=== PATIENT | female | born 1975 | race Caucasian/White ===

== ENCOUNTER 2020-09-09 16:28 | Emergency (ER) | payer BC, OTHER ==
[2020-09-09] MEDS ORDERED: Ondansetron 4 MG/2 ML SDV IVPUSH ONE (17:09)
[2020-09-09] MEDS ORDERED: Sodium Chloride 0.9% 10 ML Syringe FLUSH PRN (17:09)
[2020-09-09] MEDS ORDERED: fentaNYL 50 MCG/ML SDV IVPUSH ONE (17:09)
[2020-09-09] MEDS ORDERED: Sodium Chloride 0.9% 2.5 ML Syringe FLUSH PRN (17:09)
[2020-09-09] MEDS ORDERED: Ketorolac 15 MG/ML SDV IVPUSH ONE (17:09)
[2020-09-09] MEDS ORDERED: Sodium Chloride 0.9% 1,000 ML IV ONE (17:09)
--- NOTE | 2020-09-09 17:09 | EDM.PDOC ---
<Jean Marie Em - Last Filed: 09/09/20 17:05> ED HPI GENERAL MEDICAL PROBLEM - General Chief Complaint: Abdominal Pain Stated Complaint: LEFT SIDE ADOM.PAIN Time Seen by Provider: 09/09/20 16:51 - History of Present Illness INITIAL COMMENTS - FREE TEXT/NARRATIVE: HISTORY AND PHYSICAL: History of present illness: This a 45-year-old female with no significant past medical history for hypertension, diabetes, liver, lung, kidney, heart, strokes in the past who presents ER today complaining of pain to her left lower quadrant that started earlier today. Patient reports that she has occasional twinges to her left flank as well. Patient reports that the pain is constant but waxes and wanes in intensity. Patient reports she does have a history of a tubal in the past and she says that it feels similar to her prior tubal . Patient reports her last menstrual period was approximately 2 weeks ago. Patient denies any recent fevers, shakes, chills. Although patient does have some nausea she denies any vomiting or diarrhea. Patient denies any dysuria, frequency, urgency, hematuria. Patient denies any melena or bright red blood per rectum. Patient reports that she has been able to tolerate p.o. solids and liquids today. Review of systems: As per history of present illness and below otherwise all systems reviewed and negative. Past medical history: As per history of present illness and as reviewed below otherwise noncontributory. Surgical history: As per history of present illness and as reviewed below otherwise noncontributory. Social history: No reported history of drug abuse. Family history: As per history of present illness and as reviewed below otherwise noncontributory. Physical exam: This patient was seen and evaluated during the 2019 SARS-CoV-2 novel coronavirus pandemic period. Community viral transmission is ongoing at time of this encounter and the emergency department is operating under pandemic response procedures. Constitutional: Patient is oriented to person, place, and time. Appears well- developed and well-nourished. No distress. HEENT: Moist mucous membranes Head: Normocephalic and atraumatic Eyes: Right eye exhibits no discharge. Left eye exhibits no discharge. No scleral icterus Neck: Normal range of motion. No tracheal deviation present. Cardiovascular: Normal rate and regular rhythm. Pulmonary: Effort normal, no respiratory distress. Abd: Soft, nondistended, no rebound/guarding, no psoas or obturator signs, no tenderness at Mcberney's point, no Ramirez's sign. Pt does not present with an exam that would be consistent with an acute surgical abdomen at this time. Patient was tenderness to palpation to her left lower quadrant. Patient with some mild tenderness palpation to her left flank. Musculoskeletal: Normal range of motion Neurologic: Alert and oriented to person, place and time. Skin: [place], warm and dry. Psychiatric: Normal mood and affect. Behavior is normal. Judgment and thought content normal. Nursing note and vital signs have been reviewed Diagnostics: CT scan of the abdomen pelvis without IV contrast: CBC, CMP, lipase, urinalysis, urine test Therapeutics: NSS x1 L wide open Zofran 4 mg IV Toradol 15 mg IV Fentanyl 50 mg IV Assessment and plan: This is a 45-year-old female with no significant past medical history who presents to the ER today complaining of left lower quadrant abdominal pain that appears to be colicky in nature. Patient does have a history significant for an ectopic in the past. Patient will have labs drawn as well as CT scan of her abdomen pelvis to further evaluate the cause of her pain. In the meantime, patient will receive IV fluids, pain medicines and antiemetics to assist her with her discomfort. Definitive disposition and diagnosis as appropriate pending reevaluation and review of above. 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 Musculoskeletal History: Reports: None Neurological History: Reports: None Psychiatric History: Reports: None Endocrine/Metabolic History: Reports: None Hematologic History: Reports: None Immunologic History: Reports: None Oncologic (Cancer) History: Reports: None Dermatologic History: Reports: None - Infectious Disease History Infectious Disease History: Reports: None - Past Surgical History Head Surgeries/Procedures: Reports: None Social & Family History - Family History Family Medical History: No Pertinent Family History - Tobacco Use Tobacco Use Status *Q: Never Tobacco User - Caffeine Use Caffeine Use: Reports: None - Recreational Drug Use Recreational Drug Use: No ED ROS GENERAL - Review of Systems Review Of Systems: See Below ED EXAM, GENERAL - Physical Exam Exam: See Below Departure - Departure Disposition: Home, Self-Care 01 Clinical Impression: Diverticulitis - Discharge Information Prescriptions: Amoxicillin/Potassium Clav [Amox Tr-K Clv 875-125 mg Tab] 1 each PO BID #19 tablet Instructions: Diverticulitis, [id number] Referrals: PCP,None [Primary Care Provider] - Forms: ED Department Discharge Additional Instructions: You were evaluated today on the emergent basis. At this time you do have an infection in your abdomen called diverticulitis. Otherwise your labs were normal. There was no evidence of any kidney stone in your urine was normal. At this time we do recommend you take Augmentin twice a day until all antibiotics are gone. We did provide you the first dose here. I do recommend use Tylenol and Motrin for pain relief. Your pain will improve over the next 24 to 48 hours. If you have any worsening pain, fever, blood in your stool I would like you to return to the emergency department. You were a little young to have diverticulitis so I recommend that you follow-up with general surgery to obtain a colonoscopy for further evaluation. Otherwise please follow-up with your primary care physician. [facility] - General Surgery Professional [address], [address] [place] [address] The patient is informed of any results of their evaluation and diagnostic workup and all questions are answered. They are given discharge instructions and return precautions. The patient is stable for discharge. The patient states they understand and agree with the plan and that they will return if their symptoms get worse or if they have any new concerns. The following information is given to patients seen in the emergency department who are being discharged to home. This information is to outline your options for follow-up care. We provide all patients seen in our emergency department with a follow-up referral. The need for follow-up, as well as the timing and circumstances, are variable depending upon the specifics of your emergency department visit. If you don't have a primary care physician on staff, we will provide you with a referral. We always advise you to contact your personal physician following an emergency department visit to inform them of the circumstance of the visit and for follow-up with them and/or the need for any referrals to a consulting specialist. The emergency department will also refer you to a specialist when appropriate. This referral assures that you have the opportunity for follow-up care with a specialist. All of these measure are taken in an effort to provide you with optimal care, which includes your follow-up. Under all circumstances we always encourage you to contact your private physician who remains a resource for coordinating your care. When calling for follow-up care, please make the office aware that this follow-up is from your recent emergency room visit. If for any reason you are refused follow-up, please contact the [facility] Emergency Department at and asked to speak to the emergency department charge nurse. Sepsis Event Note (ED) - Evaluation Sepsis Screening Result: No Definite Risk <Sam Blanca - Last Filed: 09/10/20 08:06> ED HPI GENERAL MEDICAL PROBLEM - History of Present Illness INITIAL COMMENTS - FREE TEXT/NARRATIVE: Patient was signed out to me by Dr. Em pending labs and imaging at 5:30 PM I did reevaluate the patient and patient was comfortable and reported that her pain had improved. I did discuss her at this time that I would reevaluate her after labs and imaging had resulted. Laboratory: CBC reveals a leukocytosis of 12.24 without any left shift. CMP is unremarkable. hCG is negative. Lipase is normal. Urinalysis was a clean catch and was negative for leukocyte esterase, negative for nitrites, and negative for blood. Interpretation: Negative. The radiological images were viewed by myself along with reading the report from the radiologist. CT abdomen pelvis without contrast reveals uncomplicated diverticulitis of the proximal sigmoid colon, possible cholelithiasis After imaging I did discuss results with the patient. I discussed with her that would be providing her with Augmentin. She is to complete a course at home. She was given strict return precautions. I also encouraged the patient to follow-up with general surgery for an outpatient elective colonoscopy given that this is abnormal in her age. She was amenable to this plan had no further questions. DISPOSITION: The patient was discharged home in stable condition. The patient will follow up with general surgery in 1 week for evaluation for outpatient elective colonoscopy CONDITION: Fair PROCEDURES: None FINAL IMPRESSION(S)/DIAGNOSES: 1. Acute uncomplicated diverticulitis Sam Blanca M.D. Course - Vital Signs Last Recorded V/S: Last Vital Signs Temp 36.6 C 09/09/20 20:20 Pulse 78 09/09/20 20:20 Resp 18 09/09/20 20:20 BP 115/78 09/09/20 20:20 Pulse Ox 98 09/09/20 20:20 - Orders/Labs/Meds Orders: Active Orders 24 hr Category Date Time Status Saline Lock Insert [OM.PC] Stat Oth 09/09/20 17:10 Ordered Labs: Laboratory Tests 09/09/20 09/09/20 09/09/20 Range/Units 17:15 17:15 17:15 WBC 12.24 H (4.0-11.0) K/uL RBC 4.28 L (4.30-5.90) M/uL Hgb 13.6 (12.0-16.0) g/dL Hct 39.1 (36.0-46.0) % MCV 91.4 (80.0-98.0) fL MCH 31.8 (27.0-32.0) pg MCHC 34.8 (31.0-37.0) g/dL RDW Std Deviation 42.6 (28.0-62.0) fl RDW Coeff of Jo 13 (11.0-15.0) % Plt Count 188 (150-400) K/uL MPV 11.00 (7.40-12.00) fL Neut % (Auto) 77.7 (48.0-80.0) % Lymph % (Auto) 13.9 L (16.0-40.0) % [place] % (Auto) 7.1 (0.0-15.0) % Eos % (Auto) 1.2 (0.0-7.0) % Baso % (Auto) 0.1 (0.0-1.5) % Neut # (Auto) 9.5 H (1.4-5.7) K/uL Lymph # (Auto) 1.7 (0.6-2.4) K/uL [place] # (Auto) 0.9 H (0.0-0.8) K/uL Eos # (Auto) 0.2 (0.0-0.7) K/uL Baso # (Auto) 0.0 (0.0-0.1) K/uL Nucleated RBC % 0.0 /100WBC Nucleated RBCs # 0 K/uL Sodium 140 (136-145) mmol/L Potassium 3.7 (3.5-5.1) mmol/L Chloride 105 (98-107) mmol/L Carbon Dioxide 24.4 (21.0-32.0) mmol/L BUN 8 (7.0-18.0) mg/dL Creatinine 0.8 (0.6-1.0) mg/dL Est Cr Clr Drug Dosing 88.18 mL/min Estimated GFR (MDRD) > 60.0 ml/min Glucose 94 (74-106) mg/dL Calcium 8.7 (8.5-10.1) mg/dL Total Bilirubin 0.5 (0.2-1.0) mg/dL AST 16 (15-37) IU/L ALT 18 (14-63) IU/L Alkaline Phosphatase 89 (46-116) U/L Total Protein 7.1 (6.4-8.2) g/dL Albumin 3.8 (3.4-5.0) g/dL Globulin 3.3 (2.6-4.0) g/dL Albumin/Globulin Ratio 1.2 (0.9-1.6) Lipase 111 (73-393) U/L HCG, Qual NEGATIVE (NEG) Urine Color Urine Appearance Urine pH (5.0-8.0) Ur Specific [place] (1.001-1.035) Urine Protein (NEGATIVE) mg/dL Urine Glucose (UA) (NEGATIVE) mg/dL Urine Ketones (NEGATIVE) mg/dL Urine Occult Blood (NEGATIVE) Urine Nitrite (NEGATIVE) Urine Bilirubin (NEGATIVE) Urine Urobilinogen (<2.0) EU/dL Ur Leukocyte Esterase (NEGATIVE) 09/09/20 Range/Units 18:40 WBC (4.0-11.0) K/uL RBC (4.30-5.90) M/uL Hgb (12.0-16.0) g/dL Hct (36.0-46.0) % MCV (80.0-98.0) fL MCH (27.0-32.0) pg MCHC (31.0-37.0) g/dL RDW Std Deviation (28.0-62.0) fl RDW Coeff of Jo (11.0-15.0) % Plt Count (150-400) K/uL MPV (7.40-12.00) fL Neut % (Auto) (48.0-80.0) % Lymph % (Auto) (16.0-40.0) % [place] % (Auto) (0.0-15.0) % Eos % (Auto) (0.0-7.0) % Baso % (Auto) (0.0-1.5) % Neut # (Auto) (1.4-5.7) K/uL Lymph # (Auto) (0.6-2.4) K/uL [place] # (Auto) (0.0-0.8) K/uL Eos # (Auto) (0.0-0.7) K/uL Baso # (Auto) (0.0-0.1) K/uL Nucleated RBC % /100WBC Nucleated RBCs # K/uL Sodium (136-145) mmol/L Potassium (3.5-5.1) mmol/L Chloride (98-107) mmol/L Carbon Dioxide (21.0-32.0) mmol/L BUN (7.0-18.0) mg/dL Creatinine (0.6-1.0) mg/dL Est Cr Clr Drug Dosing mL/min Estimated GFR (MDRD) ml/min Glucose (74-106) mg/dL Calcium (8.5-10.1) mg/dL Total Bilirubin (0.2-1.0) mg/dL AST (15-37) IU/L ALT (14-63) IU/L Alkaline Phosphatase (46-116) U/L Total Protein (6.4-8.2) g/dL Albumin (3.4-5.0) g/dL Globulin (2.6-4.0) g/dL Albumin/Globulin Ratio (0.9-1.6) Lipase (73-393) U/L HCG, Qual (NEG) Urine Color YELLOW Urine Appearance CLEAR Urine pH 6.0 (5.0-8.0) Ur Specific [place] 1.020 (1.001-1.035) Urine Protein NEGATIVE (NEGATIVE) mg/dL Urine Glucose (UA) NEGATIVE (NEGATIVE) mg/dL Urine Ketones NEGATIVE (NEGATIVE) mg/dL Urine Occult Blood NEGATIVE (NEGATIVE) Urine Nitrite NEGATIVE (NEGATIVE) Urine Bilirubin NEGATIVE (NEGATIVE) Urine Urobilinogen 0.2 (<2.0) EU/dL Ur Leukocyte Esterase NEGATIVE (NEGATIVE) Meds: Medications Discontinued Medications Generic Name Dose Route Start Last Admin Trade Name Freq PRN Reason Stop Dose Admin Amoxicillin/Clavulanate Potassium 1 tab 09/09/20 19:19 09/09/20 19:40 Amoxicillin/Clavulanate K 875-125 Mg Tab PO 09/09/20 19:20 1 tab ONETIME ONE Administration Fentanyl 100 mcg 09/09/20 17:09 09/09/20 17:36 Fentanyl 50 Mcg/Ml Sdv IVPUSH 09/09/20 17:10 100 mcg ONETIME ONE Administration Sodium Chloride 1,000 mls @ 999 mls/hr 09/09/20 17:09 09/09/20 17:36 Normal Saline IV 09/09/20 18:09 999 mls/hr .Bolus ONE Administration Ketorolac Tromethamine 15 mg 09/09/20 17:09 09/09/20 17:36 Ketorolac 15 Mg/Ml Sdv IVPUSH 09/09/20 17:10 15 mg ONETIME ONE Administration Ondansetron HCl 4 mg 09/09/20 17:09 09/09/20 17:36 Ondansetron 4 Mg/2 Ml Sdv IVPUSH 09/09/20 17:10 4 mg ONETIME ONE Administration Sodium Chloride 10 ml 09/09/20 17:09 09/09/20 17:37 Sodium Chloride 0.9% 10 Ml Syringe FLUSH 10 ml ASDIRECTED PRN Administration Keep Vein Open Sodium Chloride 2.5 ml 09/09/20 17:09 09/09/20 17:37 Sodium Chloride 0.9% 2.5 Ml Syringe FLUSH 2.5 ml ASDIRECTED PRN Administration Keep Vein Open Departure - Departure Time of Disposition: 20:07 Condition: Fair - Discharge Information *PRESCRIPTION DRUG MONITORING PROGRAM REVIEWED*: No *COPY OF PRESCRIPTION DRUG MONITORING REPORT IN PATIENT PRIMO: No Sepsis Event Note (ED) - Focused Exam Vital Signs: Vital Signs Temp Pulse Resp BP Pulse Ox 09/09/20 20:20 36.6 C 78 18 115/78 98
[2020-09-09 17:51] LABS: BLOOD UREA NITROGEN,BUN 8 mg/dL (7.0-18.0); CARBON DIOXIDE,CO2 24.4 mmol/L (21.0-32.0); CHLORIDE,CL 105 mmol/L (98-107); GLUCOSE RANDOM 94 mg/dL (74-106); LIPASE 111 U/L (73-393); POTASSIUM,K 3.7 mmol/L (3.5-5.1); SODIUM,NA 140 mmol/L (136-145)
--- NOTE | 2020-09-09 18:55 | CT ---
INDICATION: Flank pain TECHNIQUE: CT abdomen and pelvis without contrast. COMPARISON: None FINDINGS: Lower chest: Unremarkable. Liver: Unremarkable. Spleen: Unremarkable. Pancreas: Unremarkable. Gallbladder and bile ducts: O cholelithiasis. Kidneys: Unremarkable. No kidney or ureteral stones and no hydronephrosis. Adrenal glands: Unremarkable. GI tract: Thickening the proximal sigmoid colon with adjacent inflamed fat consistent with diverticulitis. Indent Vascular structures: Unremarkable. Lymph nodes: Unremarkable. Miscellaneous: Unremarkable. No free air or significant free fluid. Pelvis: IUD present in the endometrial canal. Bones: Degenerative changes lumbar spine. IMPRESSION: Scanning of the proximal sigmoid colon adjacent plantar spurring consistent uncomplicated diverticulitis. IUD present in the endometrial canal. No renal calculi or hydronephrosis. Possible cholelithiasis. Please note that all CT scans at this facility use dose modulation, iterative reconstruction, and/or weight-based dosing when appropriate to reduce radiation dose to as low as reasonably achievable. Dictated by Amos Toro MD @ 09/09/2020 6:53:[address] Amos Toro @ Sep 09 2020 6:53PM
[2020-09-09] MEDS ORDERED: Amoxicillin/Clavulanate K 875-125 MG Tab PO ONE (19:19)
== END 2020-09-09 20:21 | disposition home or self-care (01) ==
LOC: MW.ED 16:28
DX: K57.32 Diverticulitis of large intestine without perforation or abscess without bleeding (principal); I10 Essential (primary) hypertension; E11.9 Type 2 diabetes mellitus without complications
CPT/HCPCS: 36415; 74176; 80053; 81003; 83690; 84703; 85025; 96374; 96375; 99284; A9270; J1885; J2405; J3010; J7030

== ENCOUNTER 2020-11-25 08:16 | Day surgery (SDC) | payer OTHER ==
[~2020-11-25 08:16] MED LIST: Lactated Ringers 1,000 ML IV SCH; Sodium Chloride 0.9% 10 ML SDV IV PRN; Sodium Chloride 0.9% 10 ML Syringe FLUSH PRN; Sodium Chloride 0.9% 2.5 ML Syringe FLUSH PRN
--- NOTE | 2020-11-25 08:51 | PCM.PREANE ---
Preanesthetic Assessment - Procedure Proposed Procedure: Colonoscopy - Anesthesia/Transfusion/Family Hx Anesthesia History: Prior Anesthesia Without Reaction Transfusion History: No Prior Transfusion(s) - Review of Systems General: No Symptoms Pulmonary: No Symptoms Cardiovascular: No Symptoms Gastrointestinal: No Symptoms (Diverticulits hx) Neurological: No Symptoms Other: Reports: None - Physical Assessment NPO Status Date: 11/23/20 NPO Status Time: 18:30 (Solids, >8hrs liq) Height: 5 ft 8 in Weight: 114.305 kg ASA Class: 2 Mental Status: Alert & Oriented x3 Airway Class: Mallampati = 3 Dentition: Reports: Normal Dentition Thyro-Mental Finger Breadths: 3 Mouth Opening Finger Breadths: 3 ROM/Head Extension: Full Lungs: Clear to Auscultation, Normal Respiratory Effort Cardiovascular: Regular Rate, Regular Rhythm - Allergies Allergies/Adverse Reactions: Allergies Allergy/AdvReac Type Severity Reaction Status Date / Time adhesive tape Allergy "rips my Verified 11/24/20 10:01 skin" - Acknowledgements Anesthesia Type Planned: General Anesthesia Pt an Appropriate Candidate for the Planned Anesthesia: Yes Alternatives and Risks of Anesthesia Discussed w Pt/Guardian: Yes Pt/Guardian Understands and Agrees with Anesthesia Plan: Yes PreAnesthesia Questionnaire - Past Health History Medical/Surgical History: Denies Medical/Surgical History HEENT History: Reports: None Cardiovascular History: Reports: None Respiratory History: Reports: None Gastrointestinal History: Reports: Cholelithiasis, Other (See Below) Other Gastrointestinal History: diverticulitis Genitourinary History: Reports: None 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 Musculoskeletal History: Reports: Back Pain, Chronic, Fracture Other Musculoskeletal History: fx right foot x2 Neurological History: Reports: None Psychiatric History: Reports: None Endocrine/Metabolic History: Reports: Obesity/BMI 30+ Hematologic History: Reports: None Immunologic History: Reports: None Oncologic (Cancer) History: Reports: None Dermatologic History: Reports: None - Infectious Disease History Infectious Disease History: Reports: None - Past Surgical History Head Surgeries/Procedures: Reports: None HEENT Surgical History: Reports: None Cardiovascular Surgical History: Reports: None Respiratory Surgical History: Reports: None GI Surgical History: Reports: Colonoscopy Female Surgical History: Reports: Other (See Below) Other Female Surgeries/Procedures: laparoscopy for tubal Endocrine Surgical History: Reports: None Neurological Surgical History: Reports: None Musculoskeletal Surgical History: Reports: None Oncologic Surgical History: Reports: None Dermatological Surgical History: Reports: None - SUBSTANCE USE Tobacco Use Status *Q: Never Tobacco User - HOME MEDS Home Medications: Home Meds Scopolamine [Transderm-Scop] 1 patch TRDERM ONETIME 11/24/20 [History] - CURRENT (IN HOUSE) MEDS Current Meds: Current Medications Lactated Ringer's (Ringers, Lactated) 1,000 mls @ 125 mls/hr IV ASDIRECTED MARCELLA Sodium Chloride (Sodium Chloride 0.9% 10 Ml Syringe) 10 ml FLUSH ASDIRECTED PRN PRN Reason: Keep Vein Open Sodium Chloride (Sodium Chloride 0.9% 2.5 Ml Syringe) 2.5 ml FLUSH ASDIRECTED PRN PRN Reason: Keep Vein Open Sodium Chloride (Sodium Chloride 0.9% 10 Ml Syringe) 10 ml FLUSH ASDIRECTED PRN PRN Reason: Keep Vein Open Sodium Chloride (Sodium Chloride 0.9% 2.5 Ml Syringe) 2.5 ml FLUSH ASDIRECTED PRN PRN Reason: Keep Vein Open Sodium Chloride (Sodium Chloride 0.9% 10 Ml Sdv) 10 ml IV ASDIRECTED PRN PRN Reason: IV Use
[2020-11-25] MEDS ORDERED: Propofol 200 MG/20 ML SDV ONE (09:59)
[2020-11-25] MEDS ORDERED: fentaNYL 100 MCG/2 ML SDV ONE (12:12)
--- NOTE | 2020-11-25 12:20 | PCM.OPNOTE ---
- General Post-Op/Procedure Note Date of Surgery/Procedure: 11/25/20 Operative Procedure(s): Diagnostic colonoscopy Findings: Diverticulosis of the sigmoid colon Pre Op Diagnosis: History of diverticulitis Post-Op Diagnosis: Diverticulosis Anesthesia Technique: REYNALDO Primary Surgeon: Katia Arreola Condition: Good
--- NOTE | 2020-11-25 12:26 | PCM.POSTAN ---
POST ANESTHESIA ASSESSMENT - MENTAL STATUS Mental Status: Alert, Oriented - VITAL SIGNS Vital Signs: Last Vital Signs Temp 97.3 F 11/25/20 08:24 Pulse 71 11/25/20 08:24 Resp 16 11/25/20 08:24 BP 148/81 H 11/25/20 08:24 Pulse Ox 97 11/25/20 08:24 - RESPIRATORY Respiratory Status: Respiratory Rate WNL, Airway Patent, O2 Saturation Stable - CARDIOVASCULAR CV Status: Pulse Rate WNL, Blood Pressure Stable - GASTROINTESTINAL GI Status: No Symptoms - PAIN Pain Score: 0 - POST OP HYDRATION Hydration Status: Adequate & Stable
--- NOTE | 2020-11-25 12:28 | PCM48HPAN ---
Post Anesthesia Note - EVALUATION WITHIN 48HRS OF ANESTHETIC Vital Signs in Normal Range: Yes Patient Participated in Evaluation: Yes Respiratory Function Stable: Yes Airway Patent: Yes Cardiovascular Function Stable: Yes Hydration Status Stable: Yes Pain Control Satisfactory: Yes Nausea and Vomiting Control Satisfactory: Yes Mental Status Recovered: Yes Vital Signs: Last Vital Signs Temp 97.3 F 11/25/20 08:24 Pulse 71 11/25/20 08:24 Resp 16 11/25/20 08:24 BP 148/81 H 11/25/20 08:24 Pulse Ox 97 11/25/20 08:24 - COMMENTS/OBSERVATIONS Free Text/Narrative:: Pt doing well post-op. VSS. No apparent anesthetic complications. Dr. Jordi Amin
--- NOTE | 2020-11-26 20:25 | OR ---
SURGEON: KATIA ARREOLA MD DATE OF PROCEDURE: 11/25/2020 PREOPERATIVE DIAGNOSIS: History of diverticulitis of the colon. POSTOPERATIVE DIAGNOSIS: Diverticulosis of the sigmoid colon. PROCEDURE PERFORMED: Diagnostic colonoscopy. PRIMARY SURGEON: Katia Arreola MD. ANESTHESIA: MAC. INSTRUMENT USED: Olympus colonoscope. EXTENT OF EXAM: To the cecum. PREPARATION: Good. LIMITATIONS: None. INDICATIONS FOR EXAMINATION: The patient is a 45-year-old female who was recently diagnosed with diverticulitis. She was successfully treated with antibiotics. She is here for her followup colonoscopy. The patient and I discussed the procedure, expected perioperative course, and the risks. She verbalized understanding and wishes to proceed. PROCEDURE IN DETAIL: The patient was brought in to the endoscopy suite and placed in the left lateral decubitus position. A time-out was completed verifying the patient's name, age, date of , allergies, and procedure to be performed. Monitored anesthesia care was induced and continuous oxygen was provided via nasal cannula throughout the procedure. After adequate sedation was achieved, a digital rectal exam was performed. This exam was within normal limits. A well-lubricated colonoscope was inserted in the rectum and advanced under direct visualization to the level of the cecum. I had some difficulty between 30 and 40 cm in the colon, as the patient's colon had several sharp turns that were difficult to traverse. Eventually, I was safely able to get by these. The cecum was identified by both visual and anatomic landmarks. A photograph was taken of the cecal cap. The scope was then fully withdrawn while examining the color, texture, anatomy, and integrity of the mucosa from the cecum to the anal canal. The remainder of the colonic mucosa appeared normal. The patient did have diverticula within the sigmoid colon. The scope was then brought into the rectum and retroflexed to allow visualization of the anal canal opening. This appeared normal, and a photograph was taken. The scope was then straightened out and fully withdrawn. The cecum to anus time was greater than 6 minutes. The patient tolerated the procedure well and was transferred to the PACU in stable condition. ENDOSCOPIC DIAGNOSIS: Diverticulosis. RECOMMENDATION: Follow up in clinic in two weeks. JOAN MEDINA /[id number]
== END 2020-11-25 13:05 | disposition home or self-care (01) ==
LOC: MW.SDS 08:16
PROVIDERS: ATTEND Surgery
DX: K57.30 Diverticulosis of large intestine without perforation or abscess without bleeding (principal); K80.20 Calculus of gallbladder without cholecystitis without obstruction; E66.9 Obesity, unspecified; Z68.38 Body mass index [BMI] 38.0-38.9, adult
CPT/HCPCS: 36415; 45378; 84703; J2704; J3010; J7120; 00811

== ENCOUNTER 2020-11-30 09:46 | Day surgery (SDC) | payer OTHER ==
[~2020-11-30 09:46] MED LIST changes: +Propofol 200 MG/20 ML SDV ONE; +ceFAZolin 2 GM in Premix Bag 1 BAG IV ONE; +fentaNYL 250 MCG/5 ML SDV ONE
[2020-11-30] MEDS ORDERED: Midazolam 1 MG/ML 2 ML SDV ONE (10:05)
[2020-11-30] MEDS ORDERED: fentaNYL 250 MCG/5 ML SDV ONE (10:05)
[2020-11-30] MEDS ORDERED: Rocuronium Bromide 50 MG/5 ML Syringe ONE (10:05)
[2020-11-30] MEDS ORDERED: Ondansetron 4 MG/2 ML SDV ONE (10:05)
[2020-11-30] MEDS ORDERED: Dexamethasone 4 MG/ML 5 ML MDV ONE (10:05)
[2020-11-30] MEDS ORDERED: Propofol 200 MG/20 ML SDV ONE (10:05)
[2020-11-30] MEDS ORDERED: Octyl 2-Cyanoacrylate 1 Tube ONE (10:43)
[2020-11-30] MEDS ORDERED: Bupivacaine 0.5% 10 ML SDV ONE (10:43)
[2020-11-30] MEDS ORDERED: ceFAZolin 1 GM Vial ONE (10:43)
--- NOTE | 2020-11-30 10:49 | PCM.PREANE ---
Preanesthetic Assessment - Anesthesia/Transfusion/Family Hx Anesthesia History: Prior Anesthesia Without Reaction Transfusion History: No Prior Transfusion(s) - Review of Systems General: No Symptoms Pulmonary: No Symptoms Cardiovascular: No Symptoms Gastrointestinal: Abdominal Pain Neurological: No Symptoms Other: Reports: None - Physical Assessment NPO Status Date: 11/30/20 NPO Status Time: 00:00 Vital Signs: Last Vital Signs Temp 97.3 F 11/30/20 09:53 Pulse 60 11/30/20 09:53 Resp 15 11/30/20 09:53 BP 133/67 11/30/20 09:53 Pulse Ox 97 11/30/20 09:53 Height: 5 ft 8 in Weight: 252 lb ASA Class: 2 Mental Status: Alert & Oriented x3 Airway Class: Mallampati = 2 Dentition: Reports: Normal Dentition Thyro-Mental Finger Breadths: 3 Mouth Opening Finger Breadths: 3 ROM/Head Extension: Full Lungs: Clear to Auscultation, Normal Respiratory Effort Cardiovascular: Regular Rate, Regular Rhythm - Lab Values: Laboratory Last Values Urine HCG, Qual NEGATIVE (NEGATIVE) 11/30/20 09:55 - Allergies Allergies/Adverse Reactions: Allergies Allergy/AdvReac Type Severity Reaction Status Date / Time adhesive tape Allergy "rips my Verified 11/24/20 10:01 skin" - Anesthesia Plan Pre-Op Medication Ordered: Other (scopolamine patch) - Acknowledgements Anesthesia Type Planned: General Anesthesia Pt an Appropriate Candidate for the Planned Anesthesia: Yes Alternatives and Risks of Anesthesia Discussed w Pt/Guardian: Yes Pt/Guardian Understands and Agrees with Anesthesia Plan: Yes PreAnesthesia Questionnaire - Past Health History Medical/Surgical History: Denies Medical/Surgical History HEENT History: Reports: None Cardiovascular History: Reports: None Respiratory History: Reports: None Gastrointestinal History: Reports: None Other Gastrointestinal History: diverticulitis Genitourinary History: Reports: None [employer] History: Reports: Ectopic Other OB/BYN History: hx of tubal ligation Musculoskeletal History: Reports: Back Pain, Chronic, Fracture Other Musculoskeletal History: fx right foot x2 Neurological History: Reports: None Psychiatric History: Reports: None Endocrine/Metabolic History: Reports: None Hematologic History: Reports: None Immunologic History: Reports: None Oncologic (Cancer) History: Reports: None Dermatologic History: Reports: None - Infectious Disease History Infectious Disease History: Reports: None - Past Surgical History Head Surgeries/Procedures: Reports: None HEENT Surgical History: Reports: None Cardiovascular Surgical History: Reports: None Respiratory Surgical History: Reports: None GI Surgical History: Reports: Colonoscopy Other GI Surgeries/Procedures: colonoscopy on 11/25/20 Female Surgical History: Reports: Other (See Below) Other Female Surgeries/Procedures: laparoscopy for tubal Endocrine Surgical History: Reports: None Neurological Surgical History: Reports: None Musculoskeletal Surgical History: Reports: None Oncologic Surgical History: Reports: None Dermatological Surgical History: Reports: None - SUBSTANCE USE Tobacco Use Status *Q: Never Tobacco User Recreational Drug Use History: No - HOME MEDS Home Medications: Home Meds Scopolamine [Transderm-Scop] 1 patch TRDERM ONETIME 11/24/20 [History] - CURRENT (IN HOUSE) MEDS Current Meds: Current Medications Lactated Ringer's (Ringers, Lactated) 1,000 mls @ 125 mls/hr IV ASDIRECTED MARCELLA Last Admin: 11/30/20 10:16 Dose: 125 mls/hr Documented by: Sodium Chloride (Sodium Chloride 0.9% 2.5 Ml Syringe) 2.5 ml FLUSH ASDIRECTED PRN PRN Reason: Keep Vein Open Sodium Chloride (Sodium Chloride 0.9% 10 Ml Sdv) 10 ml IV ASDIRECTED PRN PRN Reason: IV Use Sodium Chloride (Sodium Chloride 0.9% 10 Ml Syringe) 10 ml FLUSH ASDIRECTED PRN PRN Reason: Keep Vein Open Discontinued Medications Dexamethasone (Dexamethasone 4 Mg/Ml 5 Ml Mdv) Confirm Administered Dose 20 mg .ROUTE .STK-MED ONE Stop: 11/30/20 10:06 Fentanyl (Fentanyl 250 Mcg/5 Ml Sdv) Confirm Administered Dose 250 mcg .ROUTE .STK-MED ONE Stop: 11/30/20 07:38 Fentanyl (Fentanyl 250 Mcg/5 Ml Sdv) Confirm Administered Dose 250 mcg .ROUTE .STK-MED ONE Stop: 11/30/20 10:06 Cefazolin Sodium/Dextrose 2 gm (/ Premix) 50 mls @ 100 mls/hr IV ONETIME ONE Stop: 11/29/20 17:48 Cefazolin Sodium/Dextrose (Ancef 2 Gm/50 Ml) Confirm Administered Dose 50 mls @ as directed .ROUTE .STK-MED ONE Stop: 11/30/20 10:07 Acetaminophen (Ofirmev 1000 Mg/100 Ml) Confirm Administered Dose 100 mls @ as directed .ROUTE .[facility]-MED ONE Stop: 11/30/20 10:08 Lidocaine HCl (Lidocaine 1% 5 Ml Sdv) Confirm Administered Dose 5 ml .ROUTE .[facility]-MED ONE Stop: 11/30/20 10:06 Midazolam HCl (Midazolam 1 Mg/Ml 2 Ml Sdv) Confirm Administered Dose 2 mg .ROUTE .[facility]-MED ONE Stop: 11/30/20 10:06 Ondansetron HCl (Ondansetron 4 Mg/2 Ml Sdv) Confirm Administered Dose 4 mg .ROUTE .[facility]-MED ONE Stop: 11/30/20 10:06 Propofol (Propofol 200 Mg/20 Ml Sdv) Confirm Administered Dose 200 mg .ROUTE .[facility]-MED ONE Stop: 11/30/20 07:38 Propofol (Propofol 200 Mg/20 Ml Sdv) Confirm Administered Dose 200 mg .ROUTE .[facility]-MED ONE Stop: 11/30/20 10:06 Rocuronium [place] (Rocuronium [place] 50 Mg/5 Ml Syringe) Confirm Administered Dose 50 mg .ROUTE .[facility] ONE Stop: 11/30/20 10:06 Succinylcholine Chloride (Succinylcholine Chloride 200 Mg/10 Ml Syr) Confirm Administered Dose 200 mg .ROUTE .[facility]-MED ONE Stop: 11/30/20 10:06
[2020-11-30] MEDS ORDERED: fentaNYL 100 MCG/2 ML SDV IVPUSH PRN (10:50)
[2020-11-30] MEDS ORDERED: Ondansetron 4 MG/2 ML SDV IVPUSH PRN (10:50)
[2020-11-30] MEDS ORDERED: Morphine 2 MG/ML SYRINGE IVPUSH PRN (10:50)
[2020-11-30] MEDS ORDERED: Metoclopramide 10 MG/2 ML SDV IVPUSH PRN (10:50)
[2020-11-30] MEDS ORDERED: Albuterol 0.083% 2.5 MG/3 ML Neb Soln NEB PRN (10:50)
[2020-11-30] MEDS ORDERED: Naloxone 0.4 MG/ML SDV IVPUSH PRN (10:50)
[2020-11-30] MEDS ORDERED: HYDROmorphone 1 MG/ML Syringe IVPUSH PRN (10:50)
[2020-11-30] MEDS ORDERED: Glycopyrrolate 0.2 MG/ML SDV ONE ×2 (11:38→11:45)
[2020-11-30] MEDS ORDERED: Ketorolac 30 MG/ML SDV ONE (11:53)
[2020-11-30] MEDS ORDERED: Sugammadex Sodium 200 MG/2 ML VIAL ONE ×2 (12:20)
--- NOTE | 2020-11-30 14:12 | PCM.OPNOTE ---
- General Post-Op/Procedure Note Date of Surgery/Procedure: 11/30/20 Operative Procedure(s): Laparoscopic cholecystectomy Findings: Hydrops of gallbladder with stone impacted in neck. distended gallbladder Pre Op Diagnosis: Cholelithiasis Post-Op Diagnosis: Chronic cholecystitis with cholelithiasis, gallbladder hydrops Anesthesia Technique: General ET Tube Primary Surgeon: Katia Arreola Fluid Replacement, Intraop: 1,700 Output, Urine Amount: 75 EBL in mLs: 10 Condition: Good Free Text/Narrative:: Intake & Output 11/29/20 11/30/20 11/30/20 22:59 06:59 14:59 Output Total 75 Balance -75
--- NOTE | 2020-11-30 14:31 | PCM.POSTAN ---
POST ANESTHESIA ASSESSMENT - MENTAL STATUS Mental Status: Alert, Oriented - VITAL SIGNS Vital Signs: Last Vital Signs Temp 98.2 F 11/30/20 13:56 Pulse 66 11/30/20 14:27 Resp 25 H 11/30/20 14:27 BP 107/56 L 11/30/20 14:27 Pulse Ox 95 11/30/20 14:27 - RESPIRATORY Respiratory Status: Respiratory Rate WNL, Airway Patent, O2 Saturation Stable - CARDIOVASCULAR CV Status: Pulse Rate WNL, Blood Pressure Stable - GASTROINTESTINAL GI Status: No Symptoms - POST OP HYDRATION Hydration Status: Adequate & Stable
--- NOTE | 2020-11-30 14:34 | PCM48HPAN ---
Post Anesthesia Note - EVALUATION WITHIN 48HRS OF ANESTHETIC Vital Signs in Normal Range: Yes Patient Participated in Evaluation: Yes Respiratory Function Stable: Yes Airway Patent: Yes Cardiovascular Function Stable: Yes Hydration Status Stable: Yes Pain Control Satisfactory: Yes Nausea and Vomiting Control Satisfactory: Yes Mental Status Recovered: Yes Vital Signs: Last Vital Signs Temp 98.2 F 11/30/20 13:56 Pulse 66 11/30/20 14:27 Resp 25 H 11/30/20 14:27 BP 107/56 L 11/30/20 14:27 Pulse Ox 95 11/30/20 14:27
[2020-11-30] MEDS ORDERED: Acetaminophen/oxyCODONE 325-5 MG Tab PO ONE (15:49)
--- NOTE | 2020-11-30 19:59 | OR ---
SURGEON: KATIA CLARKE MD DATE OF PROCEDURE: 11/30/2020 PREOPERATIVE DIAGNOSIS: Cholelithiasis. POSTOPERATIVE DIAGNOSES: Chronic cholecystitis due to cholelithiasis, gallbladder hydrops. PROCEDURE PERFORMED: Laparoscopic cholecystectomy. PRIMARY SURGEON: Katia Clarke MD ANESTHESIA: General endotracheal anesthesia. FLUIDS: 1700 mL crystalloid. ESTIMATED BLOOD LOSS: 10 mL. URINE OUTPUT: 75 mL. FINDINGS: Distended and chronically inflamed gallbladder containing large stones. Stone impacted at the neck of the gallbladder causing gallbladder hydrops. COMPLICATIONS: None. INDICATIONS: The patient is a 45-year-old female who was recently diagnosed with diverticulitis. Incidentally, she was found to have large gallstones on her CT scan of the abdomen and pelvis. Given the size of these stones, the decision was made to proceed to the operating room to perform a laparoscopic, possible open cholecystectomy. The patient and I discussed the procedure, expected perioperative course, and the risks. She verbalized understanding and wishes to proceed. PROCEDURE IN DETAIL: The patient was brought in to the OR and placed on the OR table in supine position. A time-out was completed verifying the patient's name, age, date of , allergies, and procedure to be performed. General endotracheal anesthesia was induced. The left arm was tucked at the patient's side and a Maciel catheter placed. The abdomen was prepped and draped in usual standard fashion. The infraumbilical fold was anesthetized with 0.5% Marcaine plain. The patient had a previous scar in this area. I opened up the previous scar with an 11-blade. Cautery was used to dissect down to the level of subcutaneous fat. I then bluntly dissected down to the fascia. The fascia was elevated with Kochers and incised sharply with curved Domínguez scissors. The peritoneum and posterior fascia were then grabbed with hemostats and incised sharply as well. Entry into the abdomen was palpated digitally. A 12 mm Praveen trocar was placed into the abdomen and it was insufflated. A 5 mm 30-degree scope was inserted. I inspected the area underneath my initial trocar placement. No damage to surrounding structures was noted. The patient was placed into reverse Trendelenburg position and airplaned slightly to the left. 5 mm trocars were placed in the following locations under direct visualization; one in the epigastric area, one in the right flank, and one 2 fingerbreadths below the right subcostal margin in the midclavicular line. The dome of the gallbladder was grasped and elevated. The gallbladder appeared distended. There were some omental adhesions to the body and infundibulum of the gallbladder. These were swept away with suction. There were adhesions around the cystic duct and artery. I identified the node of Calot. I began my dissection around this area. The patient was given indocyanine green. After the dye was flushed into the system, I turned on the infrared lighting and was able to see the cystic artery pulsing. A photograph of this was taken. I continued my dissection along the proximal cystic plate. There were dense adhesions along this area. Using mainly blunt dissection with suction and a [place] device, I was able to clear away the proximal one-third of the cystic plate. I was then able to use the right angle to clear away the cystic artery from the surrounding attachments. The cystic duct was slightly tortuous. I meticulously cleaned away the attachments of it to the surrounding tissues. Again, after 30 to 45 minutes had passed, the infrared imaging was used again and this time, I could see the cystic duct coming into the gallbladder as well as its course as it travelled down to the common bile duct. I could palpate the neck of the gallbladder and could feel a large stone impacted in the neck. I doubly clipped and ligated the cystic artery once my critical view was achieved. I then triply clipped my cystic duct, however, I was concerned that some of these clips had not gone all the way across. I cleared away a little more of the proximal cystic duct and placed two clips down lower. These were clearly across the cystic duct. I then came across and sharply dissected the cystic duct from the gallbladder at its insertion site on the gallbladder itself. There was a small amount of bile leakage from the cut end on the gallbladder wall. This bile leakage was clear, consistent with hydrops and impaction of that stone in the neck of the gallbladder. I then grasped the gallbladder and took down the remaining attachments of the gallbladder wall to the cystic plate with electrocautery. The gallbladder was then placed in an EndoCatch bag. I irrigated my right upper quadrant. I reinspected my operative field. There was no evidence of bile leakage and the area was hemostatic. A photograph of this was taken. The 5 mm trocars were removed and the abdomen allowed to desufflate. The 12 mm trocar was removed and I attempted to remove my EndoCatch bag through the infraumbilical port site. The gallbladder had large gallstones and I had to extend my midline incision inferiorly in order to remove my EndoCatch bag and the gallbladder from the abdomen. Once this was completed, the gallbladder was placed on the back table and sent to Pathology labeled as gallbladder. I turned my attention to the infraumbilical port site. I grasped the fascia with Kochers and closed the fascia with interrupted [id number] Vicryl sutures. The subcutaneous fat layer was closed with a running 3-0 Vicryl stitch. The skin was closed with a running 4-0 Monocryl stitch. The 5 mm trocar sites were closed with interrupted 4-0 Monocryl sutures. Dermabond and sterile dressings were applied. The patient tolerated the procedure well and was transferred to the PACU in stable condition. JOAN MEDINA /[id number] MTDMarianne
== END 2020-11-30 16:35 | disposition home or self-care (01) ==
LOC: MW.SDS 09:46
PROVIDERS: ATTEND Surgery
DX: K80.10 Calculus of gallbladder with chronic cholecystitis without obstruction (principal); K82.1 Hydrops of gallbladder; K57.32 Diverticulitis of large intestine without perforation or abscess without bleeding
CPT/HCPCS: 47562; 81025; 88304; A9270; J0131; J0330; J0690; J1100; J1885; J2250; J2370; J2704; J3010; J3490; J7120; 00790; J2405

== ENCOUNTER 2021-09-18 12:22 | Emergency (ER) | payer OTHER ==
[2021-09-18] MEDS ORDERED: Ondansetron 4 MG/2 ML SDV IVPUSH ONE (13:29)
[2021-09-18] MEDS ORDERED: Ketorolac 30 MG/ML SDV IVPUSH ONE (13:29)
[2021-09-18] MEDS ORDERED: Sodium Chloride 0.9% 2.5 ML Syringe FLUSH PRN (13:29)
[2021-09-18] MEDS: Sodium Chloride 0.9% 10 ML Syringe FLUSH PRN ×2 (13:47→16:34)
[2021-09-18 14:03] LABS: CARBON DIOXIDE,CO2 24.3 mmol/L (21.0-32.0); POTASSIUM,K 3.4 mmol/L (3.5-5.1)
[2021-09-18] MEDS ORDERED: Sodium Chloride 0.9% 1,000 ML IV ONE (14:17)
[2021-09-18] MEDS ORDERED: Iopamidol 755 MG/ML 500 ML Multipack Bottle IVPUSH STA (14:57)
[2021-09-18] MEDS ORDERED: HYDROmorphone 1 MG/ML Syringe IVPUSH STA (16:17)
[2021-09-18] MEDS ORDERED: Ciprofloxacin 500 MG Tab PO ONE (16:40)
[2021-09-18] MEDS ORDERED: metroNIDAZOLE 250 MG Tab PO ONE (16:40)
== END 2021-09-18 17:05 | disposition home or self-care (01) ==
LOC: MW.ED 12:22
DX: K57.92 Diverticulitis of intestine, part unspecified, without perforation or abscess without bleeding (principal); E66.9 Obesity, unspecified; Z68.41 Body mass index [BMI] 40.0-44.9, adult; Z20.822 Contact with and (suspected) exposure to COVID-19; Z91.048 Other nonmedicinal substance allergy status; Z88.2 Allergy status to sulfonamides; Z79.899 Other long term (current) drug therapy
CPT/HCPCS: 36415; 74177; 80053; 81001; 83690; 85025; 87635; 96361; 96374; 96375; 99284; A9270; J1170; J1885; J2405; J3490; J7030; Q9967; U0002

== ENCOUNTER 2021-09-20 21:46 | Emergency (ER) | payer OTHER ==
[2021-09-20] MEDS ORDERED: Sodium Chloride 0.9% 2.5 ML Syringe FLUSH PRN (22:30)
[2021-09-20] MEDS ORDERED: Sodium Chloride 0.9% 10 ML Syringe FLUSH PRN (22:30)
[2021-09-20] MEDS ORDERED: Morphine 4 MG/ML VIAL IVPUSH ONE (22:31)
[2021-09-20] MEDS ORDERED: Ondansetron 4 MG/2 ML SDV IVPUSH ONE (22:31)
[2021-09-20] MEDS ORDERED: Lactated Ringers 1,000 ML IV ONE (22:31)
[2021-09-20] MEDS ORDERED: Piperacillin/Tazobactam 4.5 GM in Sodium Chloride 0.9% 100 ML IV ONE (22:35)
[2021-09-20 23:55] LABS: CARBON DIOXIDE,CO2 27.1 mmol/L (21.0-32.0); POTASSIUM,K 3.3 mmol/L (3.5-5.1)
[2021-09-21] MEDS ORDERED: Iopamidol 755 MG/ML 500 ML Multipack Bottle IVPUSH STA (00:53)
[2021-09-21] MEDS ORDERED: Morphine 4 MG/ML VIAL IVPUSH ONE (02:52)
== END 2021-09-21 03:24 ==
LOC: MW.ED 21:46
DX: K57.20 Diverticulitis of large intestine with perforation and abscess without bleeding (principal); E66.9 Obesity, unspecified; Z68.39 Body mass index [BMI] 39.0-39.9, adult; Z88.2 Allergy status to sulfonamides; Z91.048 Other nonmedicinal substance allergy status; Z79.899 Other long term (current) drug therapy; Z20.822 Contact with and (suspected) exposure to COVID-19
CPT/HCPCS: 36415; 74177; 80053; 83605; 83690; 85025; 87040; 87635; 96365; 96375; 96376; 99285; J2270; J2405; J2543; J3490; J7120; Q9967; U0002

== ENCOUNTER 2022-01-24 08:13 | Inpatient (IN) | payer OTHER ==
[~2022-01-24 08:13] MED LIST changes: +Albuterol 0.083% 2.5 MG/3 ML Neb Soln NEB PRN; -Lactated Ringers 1,000 ML IV SCH; +Metoclopramide 10 MG/2 ML SDV IVPUSH PRN; +Morphine 2 MG/ML SYRINGE IVPUSH PRN; +Naloxone 0.4 MG/ML SDV IVPUSH PRN; +Ondansetron 4 MG/2 ML SDV IVPUSH PRN; +Rocuronium Bromide 50 MG/5 ML Syringe ONE; +Ropivacaine 0.5% 5 MG/ML 30 ML SDV ONE; -Sodium Chloride 0.9% 10 ML SDV IV PRN; +Sodium Chloride 0.9% 20 ML SDV IV PRN; -ceFAZolin 2 GM in Premix Bag 1 BAG IV ONE; +fentaNYL 100 MCG/2 ML SDV ONE; -fentaNYL 250 MCG/5 ML SDV ONE; +fentaNYL 50 MCG/ML SDV IVPUSH PRN
[2022-01-24] MEDS ORDERED: metroNIDAZOLE/Normal Saline 500 MG in Premix Bag 1 BAG IV ONE (08:14)
[2022-01-24] MEDS: Lactated Ringers 1,000 ML IV SCH ×2 (08:36→17:17)
[2022-01-24] MEDS ORDERED: Ertapenem 1 GM in Sodium Chloride 0.9% 50 ML IV ONE (09:00)
[2022-01-24] MEDS ORDERED: Bupivacaine 0.5% 30 ML SDV ONE (09:25)
[2022-01-24] MEDS ORDERED: fentaNYL 100 MCG/2 ML SDV ONE ×5 (10:12→12:42)
[2022-01-24] MEDS ORDERED: Sugammadex Sodium 200 MG/2 ML VIAL ONE (10:56)
[2022-01-24] MEDS ORDERED: Phenylephrine HCl In 0.9% NaCl 1 MG/10 ML Vial ONE (10:56)
[2022-01-24] MEDS ORDERED: Water For Injection, Sterile 60 ML ONE (10:56)
[2022-01-24] MEDS ORDERED: ePHEDrine 50 MG/ML SDV ONE (10:56)
[2022-01-24] MEDS ORDERED: Dexamethasone 4 MG/ML 5 ML MDV ONE (10:56)
[2022-01-24] MEDS ORDERED: Glycopyrrolate 0.2 MG/ML SDV ONE (10:56)
[2022-01-24] MEDS ORDERED: ceFAZolin 2 GM Vial ONE ×2 (10:56→13:47)
[2022-01-24] MEDS ORDERED: Rocuronium Bromide 50 MG/5 ML Syringe ONE ×3 (10:56→14:20)
[2022-01-24] MEDS ORDERED: Ondansetron 4 MG/2 ML SDV ONE (10:56)
[2022-01-24] MEDS ORDERED: Famotidine 20 MG/2 ML SDV ONE (12:09)
[2022-01-24] MEDS ORDERED: Methylene Blue 50 MG/10 ML Ampule ONE (12:22)
[2022-01-24] MEDS ORDERED: Propofol 200 MG/20 ML SDV ONE (12:53)
[2022-01-24] MEDS ORDERED: Furosemide 40 MG/4 ML VIAL ONE (13:19)
[2022-01-24] MEDS ORDERED: Calcium Chloride 10% 1 GM/10 ML Syringe ONE (13:45)
[2022-01-24] MEDS ORDERED: Magnesium Sulfate (4.06 MEQ/ML) 5 GM/10 ML SDV ONE (13:46)
[2022-01-24] MEDS ORDERED: HYDROmorphone 2 MG/ML Syringe ONE (14:29)
[2022-01-24] MEDS: HYDROmorphone 1 MG/ML Syringe IVPUSH PRN ×2 (15:13→15:35)
[2022-01-24] MEDS ORDERED: HYDROmorphone 1 MG/ML Syringe IVPUSH PRN (15:24)
[2022-01-24] MEDS ORDERED: diphenhydrAMINE 50 MG/ML SDV IVPUSH PRN (15:24)
[2022-01-24] MEDS ORDERED: Metoclopramide 10 MG/2 ML SDV IVPUSH PRN (15:24)
[2022-01-24] MEDS ORDERED: oxyCODONE 5 MG Tab PO PRN (15:35)
[2022-01-24] MEDS: Piperacillin/Tazobactam 3.375 GM in Sodium Chloride 0.9% 50 ML IV SCH ×2 (17:13→22:10)
[2022-01-24] MEDS: Pantoprazole 40 MG in Sodium Chloride 0.9% 10 ML IVPUSH SCH (17:16)
[2022-01-24] MEDS: Enoxaparin 40 MG/0.4 ML Syringe SUBCUT SCH (17:17)
[2022-01-24] MEDS: Cyclobenzaprine 10 MG Tab PO SCH (17:18)
[2022-01-24 17:50] LABS: CARBON DIOXIDE,CO2 21.6 mmol/L (21.0-32.0); POTASSIUM,K 4.1 mmol/L (3.5-5.1)
[2022-01-24] MEDS ORDERED: ceFAZolin 2 GM in Premix Bag 1 BAG IV SCH (18:00)
[2022-01-24] MEDS ORDERED: Lactated Ringers 500 ML IV ONE (18:24)
[2022-01-24] MEDS: ceFAZolin 2 GM in Sodium Chloride 0.9% 50 ML IV SCH (18:31)
[2022-01-24] MEDS: Ketorolac 30 MG/ML SDV IVPUSH SCH (19:45)
[2022-01-24] MEDS ORDERED: Acetaminophen 1,000 MG in Premix Bag 1 BAG IV PRN (20:00)
[2022-01-24] MEDS: metroNIDAZOLE/Normal Saline 500 MG in Premix Bag 1 BAG IV SCH (22:05)
[2022-01-25] MEDS: Lactated Ringers 1,000 ML IV SCH ×3 (01:11→19:37)
[2022-01-25] MEDS: Ketorolac 30 MG/ML SDV IVPUSH SCH ×3 (01:28→14:39)
[2022-01-25] MEDS: ceFAZolin 2 GM in Sodium Chloride 0.9% 50 ML IV SCH ×2 (01:30→10:26)
[2022-01-25] MEDS: Piperacillin/Tazobactam 3.375 GM in Sodium Chloride 0.9% 50 ML IV SCH ×4 (03:43→22:16)
[2022-01-25] MEDS: metroNIDAZOLE/Normal Saline 500 MG in Premix Bag 1 BAG IV SCH ×3 (05:16→22:55)
[2022-01-25] MEDS: Pantoprazole 40 MG in Sodium Chloride 0.9% 10 ML IVPUSH SCH (06:30)
[2022-01-25 06:31] LABS: CARBON DIOXIDE,CO2 24.4 mmol/L (21.0-32.0); POTASSIUM,K 4.1 mmol/L (3.5-5.1)
[2022-01-25] MEDS ORDERED: Omeprazole 20 MG Cap.CR PO SCH (07:30)
[2022-01-25] MEDS: Cyclobenzaprine 10 MG Tab PO SCH ×3 (08:25→16:23)
[2022-01-25] MEDS ORDERED: Enoxaparin 40 MG/0.4 ML Syringe SUBCUT SCH (09:00)
[2022-01-25] MEDS: Enoxaparin 40 MG/0.4 ML Syringe SUBCUT SCH (16:23)
[2022-01-26] MEDS: Cyclobenzaprine 10 MG Tab PO SCH ×4 (00:05→23:27)
[2022-01-26] MEDS: Lactated Ringers 1,000 ML IV SCH (03:13)
[2022-01-26] MEDS: Piperacillin/Tazobactam 3.375 GM in Sodium Chloride 0.9% 50 ML IV SCH ×4 (04:03→21:27)
[2022-01-26] MEDS: metroNIDAZOLE/Normal Saline 500 MG in Premix Bag 1 BAG IV SCH (06:26)
[2022-01-26 07:12] LABS: CARBON DIOXIDE,CO2 25.7 mmol/L (21.0-32.0); POTASSIUM,K 3.4 mmol/L (3.5-5.1)
[2022-01-26] MEDS: Pantoprazole 40 MG in Sodium Chloride 0.9% 10 ML IVPUSH SCH (07:34)
[2022-01-26] MEDS: Magnesium Chloride 64 MG Tab.ER PO SCH ×2 (09:45→21:27)
[2022-01-26] MEDS: Dextrose 5%-0.45% NaCl 1,000 ML IV SCH ×2 (11:49→20:19)
[2022-01-26] MEDS: Phosphorus #1 250 MG Tab PO SCH ×3 (11:50→23:27)
[2022-01-26] MEDS ORDERED: Acetaminophen/oxyCODONE 325-5 MG Tab PO PRN (13:18)
[2022-01-26] MEDS: Ketorolac 10 MG Tab PO SCH ×2 (14:00→18:31)
[2022-01-26] MEDS: Enoxaparin 40 MG/0.4 ML Syringe SUBCUT SCH (15:31)
[2022-01-26] MEDS: Metoclopramide 10 MG/2 ML SDV IVPUSH SCH ×2 (15:31→23:28)
[2022-01-27] MEDS: Ketorolac 10 MG Tab PO SCH ×4 (01:11→19:19)
[2022-01-27] MEDS: Piperacillin/Tazobactam 3.375 GM in Sodium Chloride 0.9% 50 ML IV SCH ×4 (03:06→22:01)
[2022-01-27] MEDS: Dextrose 5%-0.45% NaCl 1,000 ML IV SCH (05:53)
[2022-01-27] MEDS: Phosphorus #1 250 MG Tab PO SCH ×3 (06:34→18:24)
[2022-01-27] MEDS: Pantoprazole 40 MG in Sodium Chloride 0.9% 10 ML IVPUSH SCH (06:35)
[2022-01-27 07:04] LABS: CARBON DIOXIDE,CO2 23.6 mmol/L (21.0-32.0); POTASSIUM,K 3.2 mmol/L (3.5-5.1)
[2022-01-27] MEDS: Cyclobenzaprine 10 MG Tab PO SCH ×3 (07:48→23:45)
[2022-01-27] MEDS: Metoclopramide 10 MG/2 ML SDV IVPUSH SCH ×2 (07:48→15:37)
[2022-01-27] MEDS: Magnesium Chloride 64 MG Tab.ER PO SCH ×3 (08:00→22:07)
[2022-01-27] MEDS ORDERED: Scopolamine 1.5 MG Transdermal Patch TRDERM ONE (09:20)
[2022-01-27] MEDS ORDERED: Potassium Bicarbonate 25 MEQ Tab.EFF PO SCH (10:00)
[2022-01-27] MEDS: Potassium Chloride 20 MEQ Tab.ER PO SCH ×2 (12:42→18:24)
[2022-01-27] MEDS: Ondansetron 4 MG/2 ML SDV IVPUSH PRN (14:27)
[2022-01-27] MEDS: Enoxaparin 40 MG/0.4 ML Syringe SUBCUT SCH (15:37)
[2022-01-27] MEDS: D5 1/2 NS w/ 20 mEq/L KCl 1,000 ML IV SCH (18:34)
[2022-01-27] MEDS ORDERED: Ondansetron 4 MG/2 ML SDV IVPUSH ONE (19:05)
[2022-01-28] MEDS: Metoclopramide 10 MG/2 ML SDV IVPUSH SCH ×4 (00:32→23:12)
[2022-01-28] MEDS: Ketorolac 10 MG Tab PO SCH ×2 (00:32→06:31)
[2022-01-28] MEDS: Phosphorus #1 250 MG Tab PO SCH ×2 (00:32→05:31)
[2022-01-28] MEDS: Piperacillin/Tazobactam 3.375 GM in Sodium Chloride 0.9% 50 ML IV SCH ×4 (03:48→22:13)
[2022-01-28] MEDS: Ondansetron 4 MG/2 ML SDV IVPUSH PRN ×2 (03:48→23:34)
[2022-01-28] MEDS: D5 1/2 NS w/ 20 mEq/L KCl 1,000 ML IV SCH (04:25)
[2022-01-28] MEDS: Pantoprazole 40 MG in Sodium Chloride 0.9% 10 ML IVPUSH SCH (06:31)
[2022-01-28] MEDS: Cyclobenzaprine 10 MG Tab PO SCH (08:43)
[2022-01-28] MEDS: Magnesium Chloride 64 MG Tab.ER PO SCH (08:44)
[2022-01-28] MEDS ORDERED: HYDROmorphone 1 MG/ML Syringe IVPUSH PRN (10:23)
[2022-01-28] MEDS ORDERED: Acetaminophen 1,000 MG in Premix Bag 1 BAG IV PRN (10:24)
[2022-01-28 11:02] LABS: CARBON DIOXIDE,CO2 25.4 mmol/L (21.0-32.0); POTASSIUM,K 3.8 mmol/L (3.5-5.1)
[2022-01-28] MEDS: Enoxaparin 40 MG/0.4 ML Syringe SUBCUT SCH (16:07)
[2022-01-28] MEDS: Dextrose 5%-0.45% NaCl 1,000 ML IV SCH (20:46)
[2022-01-29] MEDS: Piperacillin/Tazobactam 3.375 GM in Sodium Chloride 0.9% 50 ML IV SCH ×2 (03:55→09:59)
[2022-01-29] MEDS: Dextrose 5%-0.45% NaCl 1,000 ML IV SCH ×2 (05:53→16:05)
[2022-01-29] MEDS: Pantoprazole 40 MG in Sodium Chloride 0.9% 10 ML IVPUSH SCH (06:57)
[2022-01-29] MEDS: Metoclopramide 10 MG/2 ML SDV IVPUSH SCH (08:04)
[2022-01-29] MEDS ORDERED: Cyclobenzaprine 5 MG Tab PO PRN (10:55)
[2022-01-29] MEDS ORDERED: Acetaminophen/HYDROcodone 325-5 MG Tab PO PRN (11:00)
[2022-01-29] MEDS: Multivitamin Tab PO SCH (11:40)
[2022-01-29] MEDS: Enoxaparin 40 MG/0.4 ML Syringe SUBCUT SCH (16:05)
[2022-01-30] MEDS: Dextrose 5%-0.45% NaCl 1,000 ML IV SCH ×2 (00:06→08:01)
[2022-01-30] MEDS ORDERED: Pantoprazole 40 MG Tab.CR PO SCH (07:30)
[2022-01-30] MEDS: Multivitamin Tab PO SCH (08:01)
== END 2022-01-30 12:20 | disposition home or self-care (01) | DRG 329 ==
LOC: MW.MS 08:13 → MW.ICU 16:21 → MW.MS 01-25 13:00
PROVIDERS: ADMIT Surgery; ATTEND Surgery
PROC: 0DTN0ZZ Resection of Sigmoid Colon, Open Approach (ICD-10-PCS; principal; 2022-01-24)
PROC: 0DBK0ZZ Excision of Ascending Colon, Open Approach (ICD-10-PCS; 2022-01-24)
PROC: 0DB80ZZ Excision of Small Intestine, Open Approach (ICD-10-PCS; 2022-01-24)
PROC: 0DJD4ZZ Inspection of Lower Intestinal Tract, Percutaneous Endoscopic Approach (ICD-10-PCS; 2022-01-24)
DX: K57.20 Diverticulitis of large intestine with perforation and abscess without bleeding (principal); K65.1 Peritoneal abscess; A04.72 Enterocolitis due to Clostridium difficile, not specified as recurrent; K91.89 Other postprocedural complications and disorders of digestive system; K56.7 Ileus, unspecified; E83.39 Other disorders of phosphorus metabolism; E87.6 Hypokalemia; Z20.822 Contact with and (suspected) exposure to COVID-19; Z90.49 Acquired absence of other specified parts of digestive tract; Z88.2 Allergy status to sulfonamides
CPT/HCPCS: 00790; 36415; 64488; 74018; 74018-26; 80048; 80053; 81025; 83605; 83735; 84100; 85025; 85027; 87040; A9270-GY; C9113; J0131; J0690; J1100; J1170; J1650; J1885; J1940; J2405; J2543; J2704; J2765; J2795; J3010; J3475; J3480; J3490; J7042; J7120; U0002

== ENCOUNTER 2022-02-05 11:56 | Inpatient (IN) | payer OTHER ==
[2022-02-05] MEDS ORDERED: Ondansetron 4 MG/2 ML SDV IVPUSH ONE ×2 (12:27→18:14)
[2022-02-05] MEDS ORDERED: Sodium Chloride 0.9% 2.5 ML Syringe FLUSH PRN (12:27)
[2022-02-05] MEDS ORDERED: fentaNYL 50 MCG/ML SDV IVPUSH ONE (12:27)
[2022-02-05] MEDS ORDERED: Sodium Chloride 0.9% 1,000 ML IV ONE ×3 (12:27→15:24)
[2022-02-05] MEDS: Sodium Chloride 0.9% 10 ML Syringe FLUSH PRN ×2 (13:58→18:29)
[2022-02-05 14:16] LABS: CARBON DIOXIDE,CO2 20.8 mmol/L (21.0-32.0); POTASSIUM,K 3.7 mmol/L (3.5-5.1)
[2022-02-05] MEDS ORDERED: Iopamidol 755 Mg/ML 100 ML Bottle IVPUSH ONE (14:40)
[2022-02-05] MEDS ORDERED: Ampicillin/Sulbactam Na 3 GM in Sodium Chloride 0.9% 100 ML IV ONE ×2 (15:24→17:00)
[2022-02-05] MEDS ORDERED: Acetaminophen/HYDROcodone 325-5 MG Tab PO PRN (17:34)
[2022-02-05] MEDS ORDERED: Acetaminophen 1,000 MG in Premix Bag 1 BAG IV PRN (17:34)
[2022-02-05] MEDS ORDERED: Ondansetron 4 MG/2 ML SDV IVPUSH PRN (17:34)
[2022-02-05] MEDS: Piperacillin/Tazobactam 3.375 GM in Sodium Chloride 0.9% 50 ML IV SCH ×2 (18:28→23:49)
[2022-02-05 19:12] LABS: CORONAVIRUS COVID-19 NAA NEGATIVE (NEGATIVE); INFLUENZA A NAA NEGATIVE (NEGATIVE); INFLUENZA B NAA NEGATIVE (NEGATIVE); RESPIRATORY SYNCYTIAL VIR NAA NEGATIVE (NEGATIVE)
[2022-02-05] MEDS: Sodium Chloride 0.9% 1,000 ML IV SCH (20:25)
[2022-02-05] MEDS: HYDROmorphone 2 MG/ML Syringe IVPUSH PRN (20:25)
[2022-02-06] MEDS: HYDROmorphone 2 MG/ML Syringe IVPUSH PRN (01:40)
[2022-02-06] MEDS: Sodium Chloride 0.9% 1,000 ML IV SCH ×2 (02:35→08:58)
[2022-02-06] MEDS: Piperacillin/Tazobactam 3.375 GM in Sodium Chloride 0.9% 50 ML IV SCH ×4 (04:55→23:48)
[2022-02-06 07:09] LABS: POTASSIUM,K 3.4 mmol/L (3.5-5.1)
[2022-02-06] MEDS: D5 1/2 NS w/ 20 mEq/L KCl 1,000 ML IV SCH ×2 (10:05→19:32)
[2022-02-07] MEDS: D5 1/2 NS w/ 20 mEq/L KCl 1,000 ML IV SCH ×3 (04:28→22:56)
[2022-02-07] MEDS: Piperacillin/Tazobactam 3.375 GM in Sodium Chloride 0.9% 50 ML IV SCH ×4 (05:46→23:40)
[2022-02-07 07:04] LABS: CARBON DIOXIDE,CO2 27.3 mmol/L (21.0-32.0); POTASSIUM,K 3.6 mmol/L (3.5-5.1)
[2022-02-07] MEDS: Vancomycin 125 MG Cap PO SCH ×3 (12:21→23:40)
[2022-02-08] MEDS: Vancomycin 125 MG Cap PO SCH ×2 (05:46→12:15)
[2022-02-08] MEDS: Piperacillin/Tazobactam 3.375 GM in Sodium Chloride 0.9% 50 ML IV SCH (05:47)
[2022-02-08] MEDS ORDERED: Amoxicillin/Clavulanate K 875-125 MG Tab PO SCH (12:00)
== END 2022-02-08 13:35 | disposition home or self-care (01) | DRG 921 ==
LOC: MW.ED 11:56 → MW.MS 17:34 → OBSVTOIN 02-07 08:05 → MW.MS 02-07 10:46
PROVIDERS: ADMIT Surgery; ATTEND Surgery
DX: T81.30XA Disruption of wound, unspecified, initial encounter (principal); H54.7 Unspecified visual loss; E66.9 Obesity, unspecified; I10 Essential (primary) hypertension; E11.9 Type 2 diabetes mellitus without complications; Z97.5 Presence of (intrauterine) contraceptive device; Z88.2 Allergy status to sulfonamides; Z88.1 Allergy status to other antibiotic agents; Z91.048 Other nonmedicinal substance allergy status; Z90.49 Acquired absence of other specified parts of digestive tract; Z68.37 Body mass index [BMI] 37.0-37.9, adult; Z98.890 Other specified postprocedural states; Z20.822 Contact with and (suspected) exposure to COVID-19
CPT/HCPCS: 0241U; 36415; 74177; 74177-26; 80048; 80053; 81001; 82947; 83605; 83690; 83735; 85025; 85027; 87040; 87324; 87493; 96361; 96365; 96367; 96375; 96376; 99285-25; A9270-GY; G0378; J0295; J1170; J2405; J2543; J3010; J3480; J3490; J7030; Q9967

== ENCOUNTER 2022-03-12 21:33 | Inpatient (IN) | payer OTHER ==
[2022-03-12] MEDS ORDERED: Sodium Chloride 0.9% 10 ML Syringe FLUSH PRN (22:01)
[2022-03-12] MEDS ORDERED: Sodium Chloride 0.9% 2.5 ML Syringe FLUSH PRN (22:01)
[2022-03-12] MEDS ORDERED: Ondansetron 4 MG/2 ML SDV IVPUSH ONE (22:08)
[2022-03-12] MEDS ORDERED: Sodium Chloride 0.9% 1,000 ML IV ONE (22:08)
[2022-03-12] MEDS ORDERED: fentaNYL 50 MCG/ML SDV IVPUSH ONE (22:08)
[2022-03-12 22:34] LABS: CORONAVIRUS COVID-19 NAA NEGATIVE (NEGATIVE); INFLUENZA A NAA NEGATIVE (NEGATIVE); INFLUENZA B NAA NEGATIVE (NEGATIVE)
[2022-03-12 22:46] LABS: CARBON DIOXIDE,CO2 23.6 mmol/L (21.0-32.0); POTASSIUM,K 3.5 mmol/L (3.5-5.1)
[2022-03-13] MEDS ORDERED: Piperacillin/Tazobactam 3.375 GM in Sodium Chloride 0.9% 50 ML IV ONE ×2
[2022-03-13] MEDS ORDERED: fentaNYL 50 MCG/ML SDV IVPUSH ONE (00:01)
[2022-03-13] MEDS ORDERED: Ondansetron 4 MG/2 ML SDV IVPUSH ONE (00:24)
[2022-03-13] MEDS ORDERED: HYDROmorphone 1 MG/ML Syringe IVPUSH PRN (01:02)
[2022-03-13] MEDS ORDERED: Scopolamine 1.5 MG Transdermal Patch TRDERM PRN (01:04)
[2022-03-13] MEDS ORDERED: diphenhydrAMINE 50 MG/ML SDV IVPUSH PRN (01:04)
[2022-03-13] MEDS: Lactated Ringers 1,000 ML IV SCH ×3 (02:00→22:04)
[2022-03-13] MEDS: Ketorolac 30 MG/ML SDV IVPUSH SCH ×4 (02:03→20:25)
[2022-03-13] MEDS: Piperacillin/Tazobactam 3.375 GM in Sodium Chloride 0.9% 50 ML IV SCH ×3 (06:03→17:13)
[2022-03-13] MEDS: Ondansetron 4 MG/2 ML SDV IVPUSH PRN ×2 (11:01→18:11)
[2022-03-13] MEDS: Acetaminophen 1,000 MG in Premix Bag 1 BAG IV SCH ×3 (11:04→22:04)
[2022-03-14] MEDS: Piperacillin/Tazobactam 3.375 GM in Sodium Chloride 0.9% 50 ML IV SCH ×4 (00:52→17:46)
[2022-03-14] MEDS: Ketorolac 30 MG/ML SDV IVPUSH SCH ×4 (02:12→21:06)
[2022-03-14] MEDS: Acetaminophen 1,000 MG in Premix Bag 1 BAG IV SCH ×2 (04:13→11:03)
[2022-03-14] MEDS: Lactated Ringers 1,000 ML IV SCH ×2 (09:56→21:10)
[2022-03-14] MEDS ORDERED: Iopamidol 755 MG/ML 500 ML Multipack Bottle IVPUSH STA (11:22)
[2022-03-14] MEDS ORDERED: Diatrizoate Meglumine/Diatrizoate Sodium 37% 30 ML Bottle PO ONE (11:22)
[2022-03-14] MEDS: Ondansetron 4 MG/2 ML SDV IVPUSH PRN (17:46)
[2022-03-15] MEDS: Piperacillin/Tazobactam 3.375 GM in Sodium Chloride 0.9% 50 ML IV SCH ×3 (00:16→12:41)
[2022-03-15] MEDS: Ketorolac 30 MG/ML SDV IVPUSH SCH ×2 (01:13→09:27)
[2022-03-15] MEDS: traMADol 50 MG Tab PO PRN ×2 (01:14→20:36)
[2022-03-15] MEDS: Lactated Ringers 1,000 ML IV SCH (06:08)
[2022-03-15] MEDS ORDERED: Acetaminophen 325 MG Tab PO PRN (08:28)
[2022-03-15] MEDS ORDERED: Ketorolac 10 MG Tab PO PRN (08:28)
[2022-03-15] MEDS: Amoxicillin/Clavulanate K 875-125 MG Tab PO SCH (20:36)
[2022-03-16] MEDS: Amoxicillin/Clavulanate K 875-125 MG Tab PO SCH (09:17)
== END 2022-03-16 10:20 | disposition still patient (30) | DRG 393 ==
LOC: MW.ED 21:33 → MW.MS 03-13 00:01 → OBSVTOIN 03-14 08:24 → MW.MS 03-14 11:00
PROVIDERS: ADMIT Surgery; ATTEND Surgery
DX: K91.89 Other postprocedural complications and disorders of digestive system (principal); K65.1 Peritoneal abscess; K63.2 Fistula of intestine; K57.90 Diverticulosis of intestine, part unspecified, without perforation or abscess without bleeding; M54.9 Dorsalgia, unspecified; G89.29 Other chronic pain; E66.9 Obesity, unspecified; Z20.822 Contact with and (suspected) exposure to COVID-19; Z88.2 Allergy status to sulfonamides; Z91.09 Other allergy status, other than to drugs and biological substances; Z88.1 Allergy status to other antibiotic agents; Z90.49 Acquired absence of other specified parts of digestive tract; Z68.36 Body mass index [BMI] 36.0-36.9, adult
CPT/HCPCS: 0240U; 36415; 74176; 74176-26; 74177; 74177-26; 80053; 81001; 83605; 83690; 84703; 85014; 85018; 85025; 85027; 85652; 86140; 87040; 87045; 87046; 87086; 87088; 87338; 87449; 87899; 96361; 96365; 96375; 96376; 99284; 99285-25; A9270-GY; G0378; J0131; J1885; J2405; J2543; J3010; J3490; J7030; J7050; J7120; Q9963; Q9967

== ENCOUNTER 2022-06-01 08:16 | Day surgery (SDC) | payer OTHER ==
[2022-06-01] MEDS ORDERED: HYDROmorphone 1 MG/ML Syringe IVPUSH PRN (08:29)
[2022-06-01] MEDS ORDERED: Morphine 2 MG/ML SYRINGE IVPUSH PRN (08:29)
[2022-06-01] MEDS ORDERED: Ondansetron 4 MG/2 ML SDV IVPUSH PRN (08:29)
[2022-06-01] MEDS ORDERED: Metoclopramide 10 MG/2 ML SDV IVPUSH PRN (08:29)
[2022-06-01] MEDS ORDERED: fentaNYL 50 MCG/ML SDV IVPUSH PRN (08:29)
[2022-06-01] MEDS ORDERED: Naloxone 0.4 MG/ML SDV IVPUSH PRN (08:29)
[2022-06-01] MEDS ORDERED: Albuterol 0.083% 2.5 MG/3 ML Neb Soln NEB PRN (08:29)
[2022-06-01] MEDS ORDERED: Lactated Ringers 1,000 ML IV SCH (08:30)
[2022-06-01] MEDS ORDERED: Bupivacaine 0.5% 30 ML SDV ONE (09:00)
[2022-06-01] MEDS ORDERED: Ondansetron 4 MG/2 ML SDV ONE (09:05)
[2022-06-01] MEDS ORDERED: fentaNYL 100 MCG/2 ML SDV ONE (09:05)
[2022-06-01] MEDS ORDERED: Ketorolac 30 MG/ML SDV ONE (09:05)
[2022-06-01] MEDS ORDERED: Lidocaine 2% 11 ML Jelly Filled Syringe ONE (09:05)
[2022-06-01] MEDS ORDERED: Propofol 200 MG/20 ML SDV ONE (09:05)
[2022-06-01] MEDS ORDERED: Lidocaine 2% 5 ML SDV ONE (09:05)
[2022-06-01] MEDS ORDERED: ePHEDrine 50 MG/ML SDV ONE (09:29)
[2022-06-01] MEDS ORDERED: Bupivacaine 25%/EPINEPHrine/PF 30 ML ONE (09:33)
[2022-06-01] MEDS ORDERED: Ropivacaine 0.5% 5 MG/ML 30 ML SDV ONE (09:33)
== END 2022-06-01 11:00 | disposition home or self-care (01) ==
LOC: MW.SDS 08:16
PROVIDERS: ATTEND Surgery
DX: T81.49XA Infection following a procedure, other surgical site, initial encounter (principal); T81.30XA Disruption of wound, unspecified, initial encounter; Z90.49 Acquired absence of other specified parts of digestive tract; Z88.1 Allergy status to other antibiotic agents; Z88.2 Allergy status to sulfonamides; Z91.048 Other nonmedicinal substance allergy status
CPT/HCPCS: 81025; A9270-GY; J1885; J2405; J2704; J2795; J3010; J3490; J7120

== ENCOUNTER 2022-10-03 09:04 | Day surgery (SDC) | payer OTHER ==
[~2022-10-03 09:04] MED LIST changes: +HYDROmorphone 1 MG/ML Syringe IVPUSH PRN; +Lactated Ringers 1,000 ML IV SCH; -Rocuronium Bromide 50 MG/5 ML Syringe ONE; -Ropivacaine 0.5% 5 MG/ML 30 ML SDV ONE; +cefOXitin 2 GM in Sodium Chloride 0.9% 50 ML IV ONE; +droPERidol 5 MG/2 ML SDV IVPUSH PRN; -fentaNYL 100 MCG/2 ML SDV ONE; +fentaNYL 250 MCG/5 ML SDV ONE; +propofoL 50 ML ONE
[2022-10-03] MEDS ORDERED: Bupivacaine 0.5% 30 ML SDV ONE (09:14)
[2022-10-03] MEDS ORDERED: Ondansetron 4 MG/2 ML SDV ONE (10:19)
[2022-10-03] MEDS ORDERED: cefOXitin 1 GM Vial ONE (10:19)
[2022-10-03] MEDS ORDERED: Water For Injection, Sterile 20 ML ONE (10:19)
[2022-10-03] MEDS ORDERED: Lidocaine 2% 5 ML SDV ONE (10:19)
== END 2022-10-03 12:20 | disposition home or self-care (01) ==
LOC: MW.SDS 09:04
PROVIDERS: ATTEND Surgery
DX: K61.0 Anal abscess (principal); N82.3 Fistula of vagina to large intestine; G89.29 Other chronic pain; E66.9 Obesity, unspecified; Z88.1 Allergy status to other antibiotic agents; Z91.048 Other nonmedicinal substance allergy status; Z79.899 Other long term (current) drug therapy; Z90.49 Acquired absence of other specified parts of digestive tract; Z68.34 Body mass index [BMI] 34.0-34.9, adult
CPT/HCPCS: 46020; 46050; 81025; J0131; J0694; J2405; J2704; J3010; J3490; J7120; 00902